=== PATIENT | female | born 1995 | race Caucasian/White ===

== ENCOUNTER → 2016-09-30 | Outpatient (REF) | payer OTHER | LOC: M SFHCWAGY 15:58 | PROVIDERS: ATTEND Nurse Practitioner Family | DX: Z12.4 Encounter for screening for malignant neoplasm of cervix (principal); R87.612 Low grade squamous intraepithelial lesion on cytologic smear of cervix (LGSIL); Z11.3 Encounter for screening for infections with a predominantly sexual mode of transmission | CPT/HCPCS: 87491; 87591; G0123 ==

== ENCOUNTER → 2016-12-22 | Outpatient (REF) | payer OTHER ==
[2016-12-22 18:05] LABS: MEAN CORPUSCULAR HEMOGLOBIN 31.7 pg (27.0-33.0); MEAN CORPUSCULAR HGB CONC 35.9 g/dl (32.0-36.5); MEAN CORPUSCULAR VOLUME 88.3 fl (80.0-96.0); RED CELL DISTRIBUTION WIDTH 12.8 % (11.5-14.5); WHITE BLOOD COUNT 9.2 K/mm3 (4.0-10.0)
[2016-12-22 19:55] LABS: ALBUMIN 3.9 GM/DL (3.2-5.2); ALBUMIN/GLOBULIN RATIO 1.05 (1.00-1.93); ALKALINE PHOSPHATASE 69 U/L (45-117); ALT/SGPT 18 U/L (12-78); ANION GAP 10 MEQ/L (8-16); AST/SGOT 11 U/L (15-37); BILIRUBIN,TOTAL 0.4 MG/DL (0.2-1.0); BLOOD UREA NITROGEN 15 MG/DL (7-18); CALCIUM LEVEL 8.7 MG/DL (8.5-10.1); CARBON DIOXIDE LEVEL 25 MEQ/L (21-32); CHLORIDE LEVEL 106 MEQ/L (98-107); CHOLESTEROL LEVEL 180 MG/DL (<200); CREATININE FOR GFR 0.68 MG/DL (0.55-1.02); FREE T4 0.94 NG/DL (0.76-1.46); GLOMERULAR FILTRATION RATE > 60.0 (>60); GLUCOSE, FASTING 73 MG/DL (70-105); POTASSIUM SERUM 4.1 MEQ/L (3.5-5.1); SODIUM LEVEL 141 MEQ/L (136-145); TOTAL PROTEIN 7.6 GM/DL (6.4-8.2); TRIGLYCERIDES LEVEL 102 MG/DL (<150)
== END ==
LOC: M SFHCLERA 14:38
PROVIDERS: ATTEND Family Medicine
DX: R19.7 Diarrhea, unspecified (principal); R94.6 Abnormal results of thyroid function studies

== ENCOUNTER → 2016-12-31 | Outpatient (CLI) | payer OTHER ==
--- NOTE | 2017-01-01 03:34 | REP ---
Clinical: Abnormal thyroid on physical examination. Technique: Real time nguyen scale and color evaluation using linear high frequency transducer. Findings: The thyroid gland is diffusely heterogeneous and moderately enlarged without discrete focal nodule identified. Right lobe measures 5.4 x 2.2 x 2.2 cm. Left lobe measures 5.1 x 2.2 x 2.5 cm. Isthmus measures 8 mm in width. Impression: Heterogeneous enlarged thyroid gland. Signed by Abilio Jennings MD 01/01/2017 03:26 A
== END ==
LOC: M RAD 14:01
PROVIDERS: ATTEND Family Medicine
DX: R94.6 Abnormal results of thyroid function studies (principal)

== ENCOUNTER → 2017-01-14 | Outpatient (REF) | payer OTHER | LOC: M SFHCLERA 13:33 | PROVIDERS: ATTEND Family Medicine | DX: Z20.2 Contact with and (suspected) exposure to infections with a predominantly sexual mode of transmission (principal) ==

== ENCOUNTER → 2017-02-25 | Outpatient (REF) | payer OTHER ==
[2017-02-25 18:47] LABS: FREE T4 1.05 NG/DL (0.76-1.46)
== END ==
LOC: M SFHCLERA 14:15
PROVIDERS: ATTEND Family Medicine
DX: E03.9 Hypothyroidism, unspecified (principal)

== ENCOUNTER → 2017-02-25 | Outpatient (CLI) | payer OTHER ==
--- NOTE | 2017-02-25 15:35 | REP ---
LUMBAR SPINE, FIVE VIEWS: HISTORY: Back pain. There is no acute fracture or subluxation. The L4-5 intervertebral disc is decreased in height consistent with disc degeneration. Osteophytes are present on L5. The facet joints are normal in appearance. There is loss of the normal lordotic curve. IMPRESSION: Degenerative change as described above. Signed by Shoaib Santizo MD 02/25/2017 03:40 P
== END ==
LOC: M LRY 14:33
PROVIDERS: ATTEND Family Medicine
DX: M54.5 Low back pain (principal)

== ENCOUNTER → 2017-04-20 | Outpatient (REF) | payer OTHER ==
[2017-04-20 19:26] LABS: FREE T4 1.19 NG/DL (0.76-1.46)
== END ==
LOC: M SFHCLERA 14:07
PROVIDERS: ATTEND Family Medicine
DX: R94.6 Abnormal results of thyroid function studies (principal)

== ENCOUNTER → 2017-04-20 | Outpatient (CLI) | payer OTHER ==
--- NOTE | 2017-04-20 14:59 | REP ---
LEFT ANKLE, FOUR VIEWS: HISTORY: Pain. There is no acute fracture or dislocation. The joint space is normal in appearance. A calcified density is present posterior to the talus. This represents ligamentous or tendon calcification. IMPRESSION: There is no acute fracture or dislocation. Signed by Shoaib Santizo MD 04/20/2017 03:05 P
== END ==
LOC: M LRY 14:18
PROVIDERS: ATTEND Family Medicine
DX: G89.29 Other chronic pain (principal); M25.572 Pain in left ankle and joints of left foot

== ENCOUNTER → 2017-09-18 | Outpatient (REF) | payer OTHER | LOC: M SFHCLERA 12:39 | DX: N30.01 Acute cystitis with hematuria (principal) ==

== ENCOUNTER → 2017-10-01 | Outpatient (REF) | payer OTHER ==
[2017-10-01 17:37] LABS: CHLAMYDIA DNA AMPLIFICATION NEGATIVE (NEGATIVE); GC DNA AMPLIFICATION NEGATIVE (NEGATIVE)
== END ==
LOC: M SFHCWAGY 13:22
DX: Z12.4 Encounter for screening for malignant neoplasm of cervix (principal)
CPT/HCPCS: 87591

== ENCOUNTER → 2017-11-30 | Outpatient (REF) | payer OTHER | LOC: M SFHCLERA 09:50 | DX: R23.8 Other skin changes (principal) | CPT/HCPCS: 88305 ==

== ENCOUNTER → 2018-01-12 | Outpatient (REF) | payer OTHER | LOC: M SFHCLERA 16:27 | DX: E03.9 Hypothyroidism, unspecified (principal) ==

== ENCOUNTER → 2018-02-16 | Outpatient (REF) | payer OTHER | LOC: M SFHCLERA 14:25 | DX: E03.9 Hypothyroidism, unspecified (principal) ==

== ENCOUNTER → 2018-02-19 | Outpatient (REF) | payer OTHER | LOC: M SFHCLERA 14:40 | DX: E03.9 Hypothyroidism, unspecified (principal) ==

== ENCOUNTER → 2018-04-09 | Outpatient (CLI) | payer OTHER | LOC: M PLARAD 15:12 | DX: M76.822 Posterior tibial tendinitis, left leg (principal) | CPT/HCPCS: 73721 ==

== ENCOUNTER → 2018-10-14 | Outpatient (CLI) | payer OTHER ==
--- NOTE | 2018-10-14 16:30 | REP ---
Bilateral hands for arthropathy: Right hand: Mineralization and joint spaces are normal. There is no fracture or dislocation. There are no calcifications or foreign bodies. Impression: Negative right hand. No evidence of arthropathy. Left hand: Mineralization and joint spaces are normal. There is no fracture or dislocation. There are no calcifications or foreign bodies. Impression: Negative left hand. There is no evidence of arthropathy. Electronically Signed by Raheem Salazar MD 10/14/2018 04:21 P
== END ==
LOC: M LRY 15:16
PROVIDERS: ATTEND Family Medicine
DX: M25.50 Pain in unspecified joint (principal)

== ENCOUNTER → 2018-10-14 | Outpatient (REF) | payer OTHER ==
[2018-10-15 12:29] LABS: RHEUMATOID FACTOR QUANT < 10.0 IU/ML (<15.0)
[2018-10-19 00:06] LABS: ANA (HEP2) Positive (.); CYCLIC CITRULLINATED PEPTIDE 6 units (0-19)
== END ==
LOC: M SFHCLERA 14:47
PROVIDERS: ATTEND Family Medicine
DX: M25.50 Pain in unspecified joint (principal)

== ENCOUNTER → 2018-10-14 | Outpatient (CLI) | payer OTHER | LOC: M LRY 15:05 | PROVIDERS: ATTEND Family Medicine | DX: M25.50 Pain in unspecified joint (principal) ==

== ENCOUNTER → 2018-10-20 | Outpatient (REF) | payer OTHER | LOC: M SFHCWAGY 10:37 | PROVIDERS: ATTEND Nurse Practitioner Family | DX: Z12.4 Encounter for screening for malignant neoplasm of cervix (principal); Z01.419 Encounter for gynecological examination (general) (routine) without abnormal findings ==

== ENCOUNTER → 2018-12-14 | Outpatient (CLI) | payer OTHER ==
--- NOTE | 2018-12-20 17:30 | SLEEPHOME ---
DATE OF PROCEDURE: 12/14/2018 ORDERED BY: Arie Shaw PA-C Diagnostic home sleep testing was performed due to concern for the obstructive sleep apnea syndrome. For testing, a nocturnal T3 respiratory monitoring device was used. Continuous record was made of pulse, oxygen saturation, airflow, chest, abdominal strain and body position. 10 hours and 59 minutes of data were reviewed. There were 9 hours and 25 minutes marked as time in bed. During the interval marked time in bed, there were 78 respiratory events identified of 10 seconds in duration or greater for a respiratory event index of 8.3. The events were obstructive. Pulse rate and saturations were unable to be reported as the probe became dislodged early in the study. Testing was performed in both the supine and nonsupine positions. IMPRESSION: Abnormal home sleep testing with repetitive respiratory events and a respiratory event index of 8.3 is consistent with the obstructive sleep apnea syndrome. RECOMMENDATIONS: The patient should be encouraged to undergo a formal sleep evaluation and in laboratory pressure titration.
== END ==
LOC: M SLEEP HO 12:24
PROVIDERS: ATTEND Physician Assistant
DX: R40.0 Somnolence (principal)

== ENCOUNTER → 2019-02-14 | Outpatient (REF) | payer OTHER ==
[2019-02-14 20:44] LABS: BASO # 0.1 10^3/uL (0.0-0.2); BASO % 0.7 % (0.0-1.0); EOS # 0.1 10^3/uL (0.0-0.50); EOS % 1.9 % (0.0-3.0); HEMATOCRIT 41.3 % (36.0-47.0); HEMOGLOBIN 13.7 g/dl (12.0-15.5); LYMPH # 2.4 10^3/uL (1.5-6.5); LYMPH % 33.9 % (24.0-44.0); MEAN CORPUSCULAR HEMOGLOBIN 30.1 pg (27.0-33.0); MEAN CORPUSCULAR HGB CONC 33.2 g/dl (32.0-36.5); MEAN CORPUSCULAR VOLUME 90.8 fl (80.0-96.0); MONO # 0.6 10^3/uL (0.0-0.8); MONO % 7.8 % (0.0-5.0); NEUTROPHILS % 55.6 % (36.0-66.0); PLATELET COUNT, AUTOMATED 330 10^3/uL (150-450); RED BLOOD COUNT 4.55 10^6/uL (4.00-5.40); WHITE BLOOD COUNT 7.2 10^3/uL (4.0-10.0)
[2019-02-14 20:47] LABS: ALBUMIN 3.9 GM/DL (3.2-5.2); ALT/SGPT 20 U/L (12-78); BILIRUBIN,TOTAL 0.4 MG/DL (0.2-1.0); BLOOD UREA NITROGEN 10 MG/DL (7-18); CALCIUM LEVEL 8.8 MG/DL (8.5-10.1); CARBON DIOXIDE LEVEL 27 MEQ/L (21-32); CHLORIDE LEVEL 108 MEQ/L (98-107); CREATININE FOR GFR 0.76 MG/DL (0.55-1.30); GLOMERULAR FILTRATION RATE > 60.0 (>60); GLUCOSE, FASTING 77 MG/DL (70-100); POTASSIUM SERUM 4.1 MEQ/L (3.5-5.1); SODIUM LEVEL 143 MEQ/L (136-145); TOTAL PROTEIN 7.3 GM/DL (6.4-8.2)
[2019-02-14 21:42] LABS: FOLATE 9.4 NG/ML; VITAMIN B12 LEVEL 693 PG/ML
[2019-02-17 00:09] LABS: ANA (HEP2) Positive (.); Lyme Disease IgG/IgM Antibodie <0.91 ISR (0.00-0.90); Lyme Disease IgM Ab Quantitati <0.80 index (0.00-0.79)
== END ==
LOC: M SFHCLERA 14:49
PROVIDERS: ATTEND Family Medicine
DX: E03.9 Hypothyroidism, unspecified (principal); G89.29 Other chronic pain; E20.0 Idiopathic hypoparathyroidism

== ENCOUNTER → 2019-08-30 | Outpatient (REF) | payer OTHER | LOC: M SFHCLERA 16:32 | PROVIDERS: ATTEND Physician Assistant | DX: R50.9 Fever, unspecified (principal) ==

== ENCOUNTER → 2019-10-17 | Outpatient (CLI) | payer OTHER, MEDICAID ==
--- NOTE | 2019-10-18 02:18 | REP ---
Clinical: Right wrist pain Technique: AP, lateral, bilateral oblique views. Findings: The carpal bones, surrounding osseous structures, soft tissues, and joint spaces are normal. There is no evidence for acute fracture or dislocation. No subcutaneous emphysema or radiodense foreign body. Impression: Normal wrist series. No acute fracture or dislocation Electronically Signed by Abilio Jennings MD 10/18/2019 02:09 A
== END ==
LOC: M LRY 15:01
PROVIDERS: ATTEND Family Medicine
DX: M25.531 Pain in right wrist (principal)

== ENCOUNTER → 2020-01-11 | Outpatient (CLI) | payer OTHER ==
--- NOTE | 2020-01-17 12:29 | SLEEPCENT ---
DATE OF PROCEDURE: 01/11/2020 INTERPRETATION: Nocturnal polysomnography was performed for the titration of pressure therapy in this patient with a clinical diagnosis of obstructive sleep apnea syndrome supported by home testing revealing a respiratory event index of 8.3. For testing a [employer] full face mask of small size was used, 4 cm of water pressure were applied to the circuit and the lights were extinguished. 6 hours and 52 minutes of data were reviewed. There were only 137.5 minutes of sleep identified. Sleep latency was prolonged at 90 minutes. REM sleep was not achieved. Sleep architecture showed poor progression. Overall sleep efficiency was only 33.8%. The patient's electrocardiogram showed a sinus rhythm with an average heart rate of 50 beats per minute. EEG showed fairly normal waveforms for awake and sleep. There were no respiratory events identified after 5 cm of water pressure. Some limb activity was noted. Limb movement arousal index was 11.8. IMPRESSION: Obstructive sleep apnea syndrome (G47.33) RECOMMENDATIONS: Nightly use of pressure therapy 5 cm of water was sufficient to address any obstructive respiratory events. The patient did display significant limb activity and it may be necessary to address this further to further improve sleep architecture.
== END ==
LOC: M SLEEP 20:00
PROVIDERS: ATTEND Physician Assistant
DX: G47.33 Obstructive sleep apnea (adult) (pediatric) (principal)

== ENCOUNTER → 2020-05-17 | Outpatient (REF) | payer OTHER, MEDICAID ==
[2020-05-18 12:21] LABS: FREE T4 0.92 NG/DL (0.76-1.46); THYROID STIMULATING HORMONE 3.89 uIU/ML (0.358-3.740)
== END ==
LOC: M SFHCLUC 11:28
PROVIDERS: ATTEND Nurse Practitioner Family
DX: E03.9 Hypothyroidism, unspecified (principal)

== ENCOUNTER → 2020-12-20 | Outpatient (CLI) | payer OTHER, MEDICAID ==
[2020-12-20 17:45] LABS: FREE T4 1.05 NG/DL (0.76-1.46); THYROID STIMULATING HORMONE 5.11 uIU/ML (0.358-3.740)
== END ==
LOC: M WUC 11:15
PROVIDERS: ATTEND Nurse Practitioner Family
DX: E03.9 Hypothyroidism, unspecified (principal)

== ENCOUNTER → 2020-12-27 | Outpatient (REF) | payer OTHER, MEDICAID ==
[2020-12-27 17:34] LABS: CHLAMYDIA DNA AMPLIFICATION NEGATIVE (NEGATIVE); GC DNA AMPLIFICATION NEGATIVE (NEGATIVE)
== END ==
LOC: M SFHCWAGY 14:51
PROVIDERS: ATTEND Nurse Practitioner Women's Health
DX: Z12.4 Encounter for screening for malignant neoplasm of cervix (principal); R87.610 Atypical squamous cells of undetermined significance on cytologic smear of cervix (ASC-US)

== ENCOUNTER → 2021-02-05 | Outpatient (CLI) | payer OTHER, MEDICAID ==
[2021-02-05 12:27] LABS: FOLATE 6.7 NG/ML; RHEUMATOID FACTOR QUANT < 10.0 IU/ML (<15.0); TOTAL 25(OH) VITAMIN D 16.2 NG/ML (30.0-100.0); VITAMIN B12 LEVEL 454 PG/ML
== END ==
LOC: M WUC 09:01
PROVIDERS: ATTEND Psychiatry & Neurology Neurology
DX: R51.9 Headache, unspecified (principal)

== ENCOUNTER → 2021-03-25 | Outpatient (CLI) | payer OTHER | LOC: M RAD 13:42 | PROVIDERS: ATTEND Physician Assistant | DX: M51.26 Other intervertebral disc displacement, lumbar region (principal) ==

== ENCOUNTER → 2021-05-24 | Outpatient (CLI) | payer OTHER, MEDICAID ==
[2021-05-24 13:00] LABS: BASO # 0.1 10^3/uL (0.0-0.2); BASO % 0.8 % (0.0-1.0); EOS # 0.2 10^3/uL (0.0-0.5); EOS % 2.4 % (0.0-3.0); HEMATOCRIT 42.4 % (36.0-47.0); HEMOGLOBIN 13.9 g/dl (12.0-15.5); LYMPH # 2.2 10^3/uL (1.5-5.0); LYMPH % 29.2 % (24.0-44.0); MEAN CORPUSCULAR HEMOGLOBIN 30.8 pg (27.0-33.0); MEAN CORPUSCULAR HGB CONC 32.8 g/dl (32.0-36.5); MONO # 0.5 10^3/uL (0.0-0.8); MONO % 6.6 % (2.0-8.0); NEUTROPHILS # 4.5 10^3/uL (1.5-8.5); NEUTROPHILS % 60.9 % (36.0-66.0); PLATELET COUNT, AUTOMATED 324 10^3/uL (150-450); RED BLOOD COUNT 4.51 10^6/uL (4.00-5.40); WHITE BLOOD COUNT 7.4 10^3/uL (4.0-10.0)
[2021-05-24 13:27] LABS: C REACTIVE PROTEIN QUANTITATIV < 0.30 MG/DL (0.00-0.30); RHEUMATOID FACTOR QUANT < 10.0 IU/ML (<15.0)
[2021-05-24 14:07] LABS: ERYTHROCYTE SEDIMENTATION RATE 2 mm/hr (0-20)
== END ==
LOC: M WUC 10:11
PROVIDERS: ATTEND Physician Assistant
DX: M51.37 Other intervertebral disc degeneration, lumbosacral region (principal)

== ENCOUNTER → 2021-11-29 | Outpatient (CLI) | payer OTHER ==
[2021-11-29 14:42] LABS: BASO # 0.1 10^3/uL (0.0-0.2); BASO % 0.6 % (0.0-1.0); EOS # 0.2 10^3/uL (0.0-0.5); EOS % 2.2 % (0.0-3.0); HEMATOCRIT 38.2 % (36.0-47.0); HEMOGLOBIN 12.8 g/dl (12.0-15.5); LYMPH # 2.8 10^3/uL (1.5-5.0); LYMPH % 26.2 % (24.0-44.0); MEAN CORPUSCULAR HEMOGLOBIN 30.4 pg (27.0-33.0); MEAN CORPUSCULAR HGB CONC 33.5 g/dl (32.0-36.5); MEAN CORPUSCULAR VOLUME 90.7 fl (80.0-96.0); MONO # 0.7 10^3/uL (0.0-0.8); MONO % 6.7 % (2.0-8.0); NEUTROPHILS # 6.7 10^3/uL (1.5-8.5); PLATELET COUNT, AUTOMATED 343 10^3/uL (150-450); RED BLOOD COUNT 4.21 10^6/uL (4.00-5.40); WHITE BLOOD COUNT 10.5 10^3/uL (4.0-10.0)
[2021-11-29 15:09] LABS: ALBUMIN 3.8 GM/DL (3.2-5.2); ALT/SGPT 23 U/L (12-78); BILIRUBIN,TOTAL 0.3 MG/DL (0.2-1.0); BLOOD UREA NITROGEN 16 MG/DL (7-18); CALCIUM LEVEL 8.6 MG/DL (8.5-10.1); CARBON DIOXIDE LEVEL 25 MEQ/L (21-32); CHLORIDE LEVEL 112 MEQ/L (98-107); CREATININE FOR GFR 0.62 MG/DL (0.55-1.30); GLOMERULAR FILTRATION RATE > 60.0 (>60); GLUCOSE, FASTING 93 MG/DL (70-100); SODIUM LEVEL 141 MEQ/L (136-145)
[2021-12-02 21:11] LABS: H PYLORI STOOL ANTIGEN Negative (Negative); TISSUE TRANSGLUTAMINASE IgA <2 U/mL (0-3)
== END ==
LOC: M LAB 13:54
PROVIDERS: ATTEND Student in an Organized Health Care Education/Training Program
DX: R14.0 Abdominal distension (gaseous) (principal)

== ENCOUNTER → 2021-12-31 | Outpatient (REF) | payer OTHER | LOC: M SFHCWAGY 10:19 | PROVIDERS: ATTEND Obstetrics & Gynecology | DX: Z12.4 Encounter for screening for malignant neoplasm of cervix (principal) ==

== ENCOUNTER → 2021-12-31 | Outpatient (REF) | payer OTHER ==
[2021-12-31 12:21] LABS: BASO # 0.1 10^3/uL (0.0-0.2); BASO % 0.7 % (0.0-1.0); EOS # 0.2 10^3/uL (0.0-0.5); EOS % 1.7 % (0.0-3.0); HEMATOCRIT 43.2 % (36.0-47.0); HEMOGLOBIN 14.4 g/dl (12.0-15.5); LYMPH # 2.3 10^3/uL (1.5-5.0); LYMPH % 25.6 % (24.0-44.0); MEAN CORPUSCULAR HEMOGLOBIN 31.2 pg (27.0-33.0); MEAN CORPUSCULAR HGB CONC 33.3 g/dl (32.0-36.5); MEAN CORPUSCULAR VOLUME 93.7 fl (80.0-96.0); MONO # 0.7 10^3/uL (0.0-0.8); MONO % 7.4 % (2.0-8.0); NEUTROPHILS # 5.9 10^3/uL (1.5-8.5); NEUTROPHILS % 64.3 % (36.0-66.0); PLATELET COUNT, AUTOMATED 338 10^3/uL (150-450); RED BLOOD COUNT 4.61 10^6/uL (4.00-5.40); WHITE BLOOD COUNT 9.2 10^3/uL (4.0-10.0)
[2021-12-31 12:31] LABS: ALBUMIN 4.3 GM/DL (3.2-5.2); ALT/SGPT 26 U/L (12-78); APPEARANCE, URINE CLEAR (CLEAR); BACTERIA, URINE AUTO NEGATIVE (NEGATIVE); BILIRUBIN, URINE AUTO NEGATIVE (NEGATIVE); BILIRUBIN,TOTAL 0.4 MG/DL (0.2-1.0); BLOOD UREA NITROGEN 15 MG/DL (7-18); BLOOD, URINE BLOOD NEGATIVE (NEGATIVE); CARBON DIOXIDE LEVEL 23 MEQ/L (21-32); CHLORIDE LEVEL 111 MEQ/L (98-107); COLOR, URINE YELLOW (YELLOW); COMPLEMENT C3 107 MG/DL (90-180); COMPLEMENT C4 22 MG/DL (10-40); CREATININE FOR GFR 0.66 MG/DL (0.55-1.30); GLOMERULAR FILTRATION RATE > 60.0 (>60); GLUCOSE, FASTING 84 MG/DL (70-100); GLUCOSE, URINE (UA) AUTO NEGATIVE (NEGATIVE); KETONE, URINE AUTO NEGATIVE (NEGATIVE); LEUKOCYTE ESTERASE, URINE AUTO NEGATIVE (NEGATIVE); NITRITE, URINE AUTO NEGATIVE (NEGATIVE); PROTEIN, URINE AUTO NEGATIVE (NEGATIVE); RBC, URINE AUTO 0 /HPF (0-3); SODIUM LEVEL 139 MEQ/L (136-145); SPECIFIC GRAVITY URINE AUTO 1.013 (1.002-1.035); SQUAMOUS EPITHELIAL CELL UR AU 1 /HPF (0-6); TOTAL PROTEIN 7.8 GM/DL (6.4-8.2); UROBILINOGEN, URINE AUTO 0.2 mg/dL (0.0-2.0); WBC, URINE AUTO 0 /HPF (0-3)
[2021-12-31 12:43] LABS: ERYTHROCYTE SEDIMENTATION RATE 2 mm/hr (0-20)
[2021-12-31 12:48] LABS: CREATININE,RANDOM URINE 77.2 MG/DL; TOTAL PROTEIN,RANDOM URINE 6.2 MG/DL (0.0-12.0)
== END ==
LOC: M SFHCRHEU 08:52
PROVIDERS: ATTEND Internal Medicine Rheumatology
DX: R76.8 Other specified abnormal immunological findings in serum (principal); M35.3 Polymyalgia rheumatica

== ENCOUNTER → 2022-04-11 | Outpatient (REF) | payer OTHER, MEDICAID ==
[2022-04-11 17:11] LABS: FREE T4 0.96 NG/DL (0.76-1.46); THYROID STIMULATING HORMONE 2.81 uIU/ML (0.358-3.740)
== END ==
LOC: M SFHCLERA 15:51
PROVIDERS: ATTEND Student in an Organized Health Care Education/Training Program
DX: E03.9 Hypothyroidism, unspecified (principal)

== ENCOUNTER → 2022-11-04 | Outpatient (REF) | payer OTHER, MEDICAID | LOC: M LAB REF 09:13 | PROVIDERS: ATTEND Physician Assistant | DX: N30.01 Acute cystitis with hematuria (principal) ==

== ENCOUNTER → 2022-12-10 | Outpatient (CLI) | payer OTHER, MEDICAID ==
[2022-12-10 13:02] LABS: APPEARANCE, URINE HAZY (CLEAR); BACTERIA, URINE AUTO NEGATIVE (NEGATIVE); BILIRUBIN, URINE AUTO NEGATIVE (NEGATIVE); BLOOD, URINE BLOOD NEGATIVE (NEGATIVE); COLOR, URINE YELLOW (YELLOW); GLUCOSE, URINE (UA) AUTO NEGATIVE (NEGATIVE); KETONE, URINE AUTO NEGATIVE (NEGATIVE); LEUKOCYTE ESTERASE, URINE AUTO 1+ (NEGATIVE); MUCUS, URINE SMALL (NEGATIVE); NITRITE, URINE AUTO NEGATIVE (NEGATIVE); PROTEIN, URINE AUTO NEGATIVE (NEGATIVE); RBC, URINE AUTO 1 /HPF (0-3); SPECIFIC GRAVITY URINE AUTO 1.019 (1.002-1.035); SQUAMOUS EPITHELIAL CELL UR AU 11 /HPF (0-6); UROBILINOGEN, URINE AUTO 0.2 mg/dL (0.0-2.0); WBC, URINE AUTO 1 /HPF (0-3)
[2022-12-10 13:04] LABS: BASO % 0.5 % (0.0-1.0); EOS # 0.1 10^3/uL (0.0-0.5); EOS % 1.6 % (0.0-3.0); HEMATOCRIT 40.6 % (36.0-47.0); HEMOGLOBIN 13.5 g/dl (12.0-15.5); LYMPH # 2.3 10^3/uL (1.5-5.0); LYMPH % 25.5 % (24.0-44.0); MEAN CORPUSCULAR HEMOGLOBIN 30.3 pg (27.0-33.0); MEAN CORPUSCULAR HGB CONC 33.3 g/dl (32.0-36.5); MEAN CORPUSCULAR VOLUME 91.2 fl (80.0-96.0); MONO # 0.6 10^3/uL (0.0-0.8); MONO % 6.8 % (2.0-8.0); NEUTROPHILS # 5.8 10^3/uL (1.5-8.5); NEUTROPHILS % 65.4 % (36.0-66.0); PLATELET COUNT, AUTOMATED 331 10^3/uL (150-450); RED BLOOD COUNT 4.45 10^6/uL (4.00-5.40); WHITE BLOOD COUNT 8.9 10^3/uL (4.0-10.0)
[2022-12-10 13:25] LABS: TOTAL PROTEIN,RANDOM URINE 15.5 MG/DL (0.0-14.0)
[2022-12-10 13:27] LABS: CREATININE,RANDOM URINE 100.1 MG/DL
[2022-12-10 13:28] LABS: ALBUMIN 4.1 G/DL (3.2-5.2); ALKALINE PHOSPHATASE 71 U/L (46-116); ALT/SGPT 18 U/L (7.0-40); AST/SGOT 12 U/L (<34); BILIRUBIN,TOTAL 0.4 MG/DL (0.3-1.2); BLOOD UREA NITROGEN 14 MG/DL (9-23); CALCIUM LEVEL 8.5 MG/DL (8.5-10.1); CARBON DIOXIDE LEVEL 24 MMOL/L (20-31); CHLORIDE LEVEL 109 MMOL/L (98-107); CREATININE FOR GFR 0.69 MG/DL (0.55-1.30); GLOMERULAR FILTRATION RATE > 60.0 (>60); GLUCOSE, FASTING 75 MG/DL (60-100); SODIUM LEVEL 138 MMOL/L (136-145); TOTAL PROTEIN 7.3 G/DL (5.7-8.2)
[2022-12-10 13:31] LABS: C REACTIVE PROTEIN QUANTITATIV < 0.40 MG/DL (<1.0)
[2022-12-10 13:32] LABS: COMPLEMENT C3 131.5 MG/DL (82.0-160.0); COMPLEMENT C4 29.3 MG/DL (12-36)
[2022-12-10 13:39] LABS: ERYTHROCYTE SEDIMENTATION RATE 6 mm/hr (0-20)
[2022-12-12 16:09] LABS: ANTI DS-DNA AB Positive (Negative)
== END ==
LOC: M WUC 10:26
PROVIDERS: ATTEND Internal Medicine Rheumatology
DX: R76.8 Other specified abnormal immunological findings in serum (principal); M35.3 Polymyalgia rheumatica; R21 Rash and other nonspecific skin eruption

== ENCOUNTER → 2023-01-13 | Outpatient (REF) | payer OTHER, MEDICAID | LOC: M SFHCWAGY 10:25 | PROVIDERS: ATTEND Obstetrics & Gynecology | DX: Z12.4 Encounter for screening for malignant neoplasm of cervix (principal); Z77.9 Other contact with and (suspected) exposures hazardous to health ==

== ENCOUNTER → 2023-01-17 | Outpatient (CLI) | payer OTHER, MEDICAID ==
[2023-01-17 13:45] LABS: LUTEINIZING HORMONE 3.9 mIU/ML
[2023-01-17 13:46] LABS: FOLLICLE STIMULATING HORMONE 6.6 mIU/ML; PROGESTERONE 0.32 NG/ML
== END ==
LOC: M LAB 12:40
PROVIDERS: ATTEND Obstetrics & Gynecology
DX: Z31.9 Encounter for procreative management, unspecified (principal)

== ENCOUNTER → 2023-02-04 | Outpatient (CLI) | payer OTHER | LOC: M LAB 14:35 | PROVIDERS: ATTEND Obstetrics & Gynecology | DX: Z31.9 Encounter for procreative management, unspecified (principal) ==

== ENCOUNTER → 2023-02-06 | Outpatient (CLI) | payer OTHER | LOC: M PLARAD 13:46 | PROVIDERS: ATTEND Nurse Practitioner Family | DX: M54.16 Radiculopathy, lumbar region (principal) ==

== ENCOUNTER → 2023-04-14 | Outpatient (CLI) | payer OTHER ==
[~2023-04-14] MED LIST: ISOVUE-370 76% 100ML VIAL As Ordered ONE
== END ==
LOC: M RADPRO 11:57
PROVIDERS: ATTEND Obstetrics & Gynecology
DX: N97.9 Female infertility, unspecified (principal)
CPT/HCPCS: 58340; 74740; Q9967

== ENCOUNTER → 2023-05-14 | Outpatient (REF) | payer OTHER ==
[2023-05-14 21:08] LABS: BASO # 0.1 10^3/uL (0.0-0.2); BASO % 0.7 % (0.0-1.0); EOS # 0.2 10^3/uL (0.0-0.5); EOS % 1.6 % (0.0-3.0); HEMATOCRIT 42.7 % (36.0-47.0); HEMOGLOBIN 13.7 g/dl (12.0-15.5); LYMPH % 24.5 % (24.0-44.0); MEAN CORPUSCULAR HEMOGLOBIN 29.7 pg (27.0-33.0); MEAN CORPUSCULAR HGB CONC 32.1 g/dl (32.0-36.5); MEAN CORPUSCULAR VOLUME 92.4 fl (80.0-96.0); MONO # 0.8 10^3/uL (0.0-0.8); MONO % 6.6 % (2.0-8.0); NEUTROPHILS # 8.1 10^3/uL (1.5-8.5); NEUTROPHILS % 66.3 % (36.0-66.0); PLATELET COUNT, AUTOMATED 380 10^3/uL (150-450); RED BLOOD COUNT 4.62 10^6/uL (4.00-5.40); WHITE BLOOD COUNT 12.2 10^3/uL (4.0-10.0)
[2023-05-14 21:29] LABS: ALBUMIN 4.2 G/DL (3.2-5.2); ALKALINE PHOSPHATASE 78 U/L (46-116); ALT/SGPT 20 U/L (7.0-40); AST/SGOT < 8 U/L (<34); BILIRUBIN,TOTAL 0.4 MG/DL (0.3-1.2); BLOOD UREA NITROGEN 20 MG/DL (9-23); CALCIUM LEVEL 8.8 MG/DL (8.5-10.1); CARBON DIOXIDE LEVEL 24 MMOL/L (20-31); CHLORIDE LEVEL 106 MMOL/L (98-107); CREATININE FOR GFR 0.63 MG/DL (0.55-1.30); GLOMERULAR FILTRATION RATE > 60.0 (>60); GLUCOSE, FASTING 86 MG/DL (60-100); SODIUM LEVEL 139 MMOL/L (136-145); TOTAL PROTEIN 7.5 G/DL (5.7-8.2)
== END ==
LOC: M LAB REF 20:43
PROVIDERS: ATTEND Psychiatry & Neurology Neurology
DX: R51.9 Headache, unspecified (principal)

== ENCOUNTER → 2023-05-19 | Outpatient (CLI) | payer OTHER ==
[2023-05-19 18:20] LABS: FREE T4 0.87 NG/DL (0.89-1.76); THYROID STIMULATING HORMONE 3.16 uIU/ML (0.55-4.78)
== END ==
LOC: M WUC 12:51
PROVIDERS: ATTEND Student in an Organized Health Care Education/Training Program
DX: E03.9 Hypothyroidism, unspecified (principal); R10.13 Epigastric pain

== ENCOUNTER → 2023-07-01 | Outpatient (REF) | payer OTHER ==
[2023-07-01 16:20] LABS: BASO # 0.1 10^3/uL (0.0-0.2); BASO % 0.6 % (0.0-1.0); EOS # 0.1 10^3/uL (0.0-0.5); EOS % 1.3 % (0.0-3.0); HEMATOCRIT 42.8 % (36.0-47.0); HEMOGLOBIN 14.1 g/dl (12.0-15.5); LYMPH # 2.1 10^3/uL (1.5-5.0); LYMPH % 22.3 % (24.0-44.0); MEAN CORPUSCULAR HEMOGLOBIN 30.5 pg (27.0-33.0); MEAN CORPUSCULAR HGB CONC 32.9 g/dl (32.0-36.5); MEAN CORPUSCULAR VOLUME 92.4 fl (80.0-96.0); MONO # 0.6 10^3/uL (0.0-0.8); MONO % 6.1 % (2.0-8.0); NEUTROPHILS # 6.5 10^3/uL (1.5-8.5); NEUTROPHILS % 69.5 % (36.0-66.0); PLATELET COUNT, AUTOMATED 353 10^3/uL (150-450); RED BLOOD COUNT 4.63 10^6/uL (4.00-5.40); WHITE BLOOD COUNT 9.3 10^3/uL (4.0-10.0)
[2023-07-01 16:26] LABS: ERYTHROCYTE SEDIMENTATION RATE 21 mm/hr (0-20)
[2023-07-01 16:33] LABS: COMPLEMENT C3 129.8 MG/DL (84.0-160.0); COMPLEMENT C4 28.2 MG/DL (12-36)
[2023-07-01 16:34] LABS: ALBUMIN 4.3 G/DL (3.2-5.2); ALKALINE PHOSPHATASE 78 U/L (46-116); ALT/SGPT 14 U/L (7.0-40); AST/SGOT 12 U/L (<34); BILIRUBIN,TOTAL 0.4 MG/DL (0.3-1.2); BLOOD UREA NITROGEN 15 MG/DL (9-23); CALCIUM LEVEL 8.9 MG/DL (8.5-10.1); CARBON DIOXIDE LEVEL 25 MMOL/L (20-31); CHLORIDE LEVEL 105 MMOL/L (98-107); GLOMERULAR FILTRATION RATE > 60.0 (>60); GLUCOSE, FASTING 79 MG/DL (60-100); POTASSIUM SERUM 4.1 MMOL/L (3.5-5.1); SODIUM LEVEL 139 MMOL/L (136-145); TOTAL PROTEIN 7.5 G/DL (5.7-8.2)
== END ==
LOC: M SFHCRHEU 11:50
PROVIDERS: ATTEND Internal Medicine Rheumatology
DX: R76.8 Other specified abnormal immunological findings in serum (principal); M35.3 Polymyalgia rheumatica; R21 Rash and other nonspecific skin eruption

== ENCOUNTER → 2023-07-21 | Outpatient (CLI) | payer OTHER ==
[~2023-07-21] MED LIST changes: +E-Z-GAS II EFFERVESCENT PACKET (SODIUM BICARB./CITRIC ACID/SIMETHICONE) As Ordered ONE; +E-Z-HD 98% w/w 340GM SUSP BTL As Ordered ONE; +E-Z-PAQUE 96% w/w SUSP 176GM BTL As Ordered ONE; -ISOVUE-370 76% 100ML VIAL As Ordered ONE
== END ==
LOC: M RAD 08:15
PROVIDERS: ATTEND Student in an Organized Health Care Education/Training Program
DX: R09.89 Other specified symptoms and signs involving the circulatory and respiratory systems (principal)

== ENCOUNTER → 2023-10-14 | Outpatient (REF) | payer OTHER | LOC: M SFHCDERM 17:33 | PROVIDERS: ATTEND Physician Assistant | DX: D23.62 Other benign neoplasm of skin of left upper limb, including shoulder (principal) ==

== ENCOUNTER → 2024-03-01 | Outpatient (REF) | payer OTHER ==
[2024-03-01 17:39] LABS: TOTAL PROTEIN,RANDOM URINE 13.5 MG/DL (0.0-14.0)
[2024-03-01 17:41] LABS: C REACTIVE PROTEIN QUANTITATIV < 0.40 MG/DL (<1.0)
[2024-03-01 17:43] LABS: ALBUMIN 3.9 G/DL (3.2-5.2); ALKALINE PHOSPHATASE 71 U/L (46-116); ALT/SGPT 16 U/L (7.0-40); AST/SGOT < 8 U/L (<34); BILIRUBIN,TOTAL 0.5 MG/DL (0.3-1.2); BLOOD UREA NITROGEN 12 MG/DL (9-23); CALCIUM LEVEL 8.5 MG/DL (8.5-10.1); CARBON DIOXIDE LEVEL 27 MMOL/L (20-31); CHLORIDE LEVEL 107 MMOL/L (98-107); COMPLEMENT C3 121.1 MG/DL (84.0-160.0); COMPLEMENT C4 25.8 MG/DL (12-36); CREATININE FOR GFR 0.54 MG/DL (0.55-1.30); GLOMERULAR FILTRATION RATE > 60.0 (>60); GLUCOSE, FASTING 88 MG/DL (60-100); POTASSIUM SERUM 4.2 MMOL/L (3.5-5.1); SODIUM LEVEL 140 MMOL/L (136-145); TOTAL PROTEIN 7.1 G/DL (5.7-8.2)
[2024-03-01 17:44] LABS: CREATININE,RANDOM URINE 141.4 MG/DL
[2024-03-01 17:47] LABS: BASO # 0.1 10^3/uL (0.0-0.2); BASO % 0.7 % (0.0-1.0); EOS # 0.2 10^3/uL (0.0-0.5); EOS % 2.2 % (0.0-3.0); HEMATOCRIT 41.6 % (36.0-47.0); HEMOGLOBIN 13.7 g/dl (12.0-15.5); LYMPH # 1.9 10^3/uL (1.5-5.0); MEAN CORPUSCULAR HEMOGLOBIN 30.4 pg (27.0-33.0); MEAN CORPUSCULAR HGB CONC 32.9 g/dl (32.0-36.5); MEAN CORPUSCULAR VOLUME 92.4 fl (80.0-96.0); MONO # 0.5 10^3/uL (0.0-0.8); MONO % 6.5 % (2.0-8.0); NEUTROPHILS # 4.8 10^3/uL (1.5-8.5); NEUTROPHILS % 65.3 % (36.0-66.0); PLATELET COUNT, AUTOMATED 360 10^3/uL (150-450); WHITE BLOOD COUNT 7.4 10^3/uL (4.0-10.0)
[2024-03-01 17:54] LABS: ERYTHROCYTE SEDIMENTATION RATE 6 mm/hr (0-20)
[2024-03-01 17:55] LABS: APPEARANCE, URINE CLEAR (CLEAR); BACTERIA, URINE AUTO NEGATIVE (NEGATIVE); BILIRUBIN, URINE AUTO NEGATIVE (NEGATIVE); BLOOD, URINE BLOOD NEGATIVE (NEGATIVE); COLOR, URINE YELLOW (YELLOW); GLUCOSE, URINE (UA) AUTO NEGATIVE (NEGATIVE); KETONE, URINE AUTO NEGATIVE (NEGATIVE); LEUKOCYTE ESTERASE, URINE AUTO NEGATIVE (NEGATIVE); MUCUS, URINE SMALL (NEGATIVE); NITRITE, URINE AUTO NEGATIVE (NEGATIVE); PROTEIN, URINE AUTO NEGATIVE (NEGATIVE); RBC, URINE AUTO 0 /HPF (0-3); SPECIFIC GRAVITY URINE AUTO 1.024 (1.002-1.035); SQUAMOUS EPITHELIAL CELL UR AU 2 /HPF (0-6); UROBILINOGEN, URINE AUTO 0.2 mg/dL (0.0-2.0); WBC, URINE AUTO 0 /HPF (0-3)
== END ==
LOC: M SFHCRHEU 11:49
PROVIDERS: ATTEND Internal Medicine Rheumatology
DX: R76.8 Other specified abnormal immunological findings in serum (principal); M35.3 Polymyalgia rheumatica; R21 Rash and other nonspecific skin eruption; M25.50 Pain in unspecified joint

== ENCOUNTER → 2024-09-20 | Outpatient (CLI) | payer OTHER ==
[~2024-09-20] MED LIST changes: -E-Z-GAS II EFFERVESCENT PACKET (SODIUM BICARB./CITRIC ACID/SIMETHICONE) As Ordered ONE; -E-Z-HD 98% w/w 340GM SUSP BTL As Ordered ONE; -E-Z-PAQUE 96% w/w SUSP 176GM BTL As Ordered ONE; +LEVO88TA3 PO; +METF-838 PO; +PANT20TA6 PO; +TIZA10TA PO; +VENL150C43 PO
[2024-09-20 19:20] LABS: BASO # 0.1 10^3/uL (0.0-0.2); BASO % 0.5 % (0.0-1.0); EOS # 0.2 10^3/uL (0.0-0.5); EOS % 2.2 % (0.0-3.0); HEMATOCRIT 41.9 % (36.0-47.0); HEMOGLOBIN 13.8 g/dl (12.0-15.5); LYMPH # 2.3 10^3/uL (1.5-5.0); LYMPH % 25.7 % (24.0-44.0); MEAN CORPUSCULAR HEMOGLOBIN 30.5 pg (27.0-33.0); MEAN CORPUSCULAR HGB CONC 32.9 g/dl (32.0-36.5); MEAN CORPUSCULAR VOLUME 92.7 fl (80.0-96.0); MONO # 0.7 10^3/uL (0.0-0.8); MONO % 7.9 % (2.0-8.0); NEUTROPHILS # 5.8 10^3/uL (1.5-8.5); NEUTROPHILS % 63.4 % (36.0-66.0); PLATELET COUNT, AUTOMATED 327 10^3/uL (150-450); RED BLOOD COUNT 4.52 10^6/uL (4.00-5.40); WHITE BLOOD COUNT 9.1 10^3/uL (4.0-10.0)
[2024-09-20 19:33] LABS: HEMOGLOBIN A1c 4.8 % (4.0-6.0)
[2024-09-20 19:49] LABS: ALBUMIN 4.1 G/DL (3.2-5.2); ALKALINE PHOSPHATASE 77 U/L (35-104); ALT/SGPT 30 U/L (7.0-40); AST/SGOT 17 U/L (<34); BILIRUBIN,TOTAL 0.4 MG/DL (0.3-1.2); BLOOD UREA NITROGEN 14 MG/DL (9-23); CARBON DIOXIDE LEVEL 27 MMOL/L (20-31); CHLORIDE LEVEL 108 MMOL/L (98-107); CHOLESTEROL LEVEL 195 MG/DL (<200); CHOLESTEROL RISK RATIO 4.08 (<5); GLOMERULAR FILTRATION RATE > 60.0 (>60); GLUCOSE, FASTING 88 MG/DL (60-100); HDL CHOLESTEROL 47.7 MG/DL (>40); LDL CHOLESTEROL 127.5 MG/DL (<100); NON-HDL-C 147.3 MG/DL; POTASSIUM SERUM 4.3 MMOL/L (3.5-5.1); SODIUM LEVEL 141 MMOL/L (136-145); TOTAL PROTEIN 7.4 G/DL (5.7-8.2); TRIGLYCERIDES LEVEL 99 MG/DL (<150)
[2024-09-20 19:52] LABS: THYROID STIMULATING HORMONE 6.225 uIU/ML (0.55-4.78)
== END ==
LOC: M WUC 14:31
PROVIDERS: ATTEND Family Medicine
DX: Z00.00 Encounter for general adult medical examination without abnormal findings (principal); Z01.419 Encounter for gynecological examination (general) (routine) without abnormal findings

== ENCOUNTER → 2024-10-25 | Outpatient (CLI) | payer OTHER | LOC: M SOG 07:55 | PROVIDERS: ATTEND Physician Assistant | DX: M25.531 Pain in right wrist (principal); M25.532 Pain in left wrist ==

== ENCOUNTER → 2024-12-02 | Outpatient (CLI) | payer OTHER | LOC: M RAD 15:59 | PROVIDERS: ATTEND Obstetrics & Gynecology | DX: N88.8 Other specified noninflammatory disorders of cervix uteri (principal); N83.201 Unspecified ovarian cyst, right side; N83.292 Other ovarian cyst, left side ==

== ENCOUNTER → 2024-12-22 | Outpatient (REF) | payer OTHER ==
[2024-12-22 17:45] LABS: C REACTIVE PROTEIN QUANTITATIV 1.19 MG/DL (<1.0)
[2024-12-22 17:46] LABS: ALBUMIN 3.8 G/DL (3.2-5.2); ALKALINE PHOSPHATASE 82 U/L (35-104); ALT/SGPT 22 U/L (7.0-40); AST/SGOT 11 U/L (<34); BILIRUBIN,TOTAL 0.4 MG/DL (0.3-1.2); BLOOD UREA NITROGEN 11 MG/DL (9-23); CALCIUM LEVEL 8.7 MG/DL (8.5-10.1); CARBON DIOXIDE LEVEL 27 MMOL/L (20-31); CHLORIDE LEVEL 106 MMOL/L (98-107); CREATININE FOR GFR 0.55 MG/DL (0.55-1.30); GLOMERULAR FILTRATION RATE > 90.0 (>60); GLUCOSE, FASTING 72 MG/DL (60-100); POTASSIUM SERUM 3.9 MMOL/L (3.5-5.1); SODIUM LEVEL 143 MMOL/L (136-145); TOTAL PROTEIN 7.3 G/DL (5.7-8.2)
[2024-12-22 17:47] LABS: COMPLEMENT C3 173.7 MG/DL (84.0-160.0); COMPLEMENT C4 33.2 MG/DL (12-36)
[2024-12-22 17:48] LABS: APPEARANCE, URINE CLEAR (CLEAR); BACTERIA, URINE AUTO NEGATIVE (NEGATIVE); BILIRUBIN, URINE AUTO NEGATIVE (NEGATIVE); BLOOD, URINE BLOOD 1+ (NEGATIVE); COLOR, URINE YELLOW (YELLOW); GLUCOSE, URINE (UA) AUTO NEGATIVE (NEGATIVE); KETONE, URINE AUTO NEGATIVE (NEGATIVE); LEUKOCYTE ESTERASE, URINE AUTO NEGATIVE (NEGATIVE); MUCUS, URINE SMALL (NEGATIVE); NITRITE, URINE AUTO NEGATIVE (NEGATIVE); PROTEIN, URINE AUTO NEGATIVE (NEGATIVE); RBC, URINE AUTO 1 /HPF (0-3); SQUAMOUS EPITHELIAL CELL UR AU 4 /HPF (0-6); UROBILINOGEN, URINE AUTO 0.2 mg/dL (0.0-2.0); WBC, URINE AUTO 0 /HPF (0-3)
[2024-12-22 18:05] LABS: TOTAL PROTEIN,RANDOM URINE 9.5 MG/DL (0.0-14.0)
[2024-12-22 18:06] LABS: BASO # 0.1 10^3/uL (0.0-0.2); BASO % 0.4 % (0.0-1.0); EOS # 0.1 10^3/uL (0.0-0.5); EOS % 1.1 % (0.0-3.0); HEMATOCRIT 40.4 % (36.0-47.0); HEMOGLOBIN 13.2 g/dl (12.0-15.5); LYMPH # 2.6 10^3/uL (1.5-5.0); LYMPH % 21.9 % (24.0-44.0); MEAN CORPUSCULAR HEMOGLOBIN 29.9 pg (27.0-33.0); MEAN CORPUSCULAR HGB CONC 32.7 g/dl (32.0-36.5); MEAN CORPUSCULAR VOLUME 91.6 fl (80.0-96.0); MONO # 0.8 10^3/uL (0.0-0.8); NEUTROPHILS # 8.1 10^3/uL (1.5-8.5); NEUTROPHILS % 69.3 % (36.0-66.0); PLATELET COUNT, AUTOMATED 369 10^3/uL (150-450); RED BLOOD COUNT 4.41 10^6/uL (4.00-5.40); WHITE BLOOD COUNT 11.8 10^3/uL (4.0-10.0)
[2024-12-22 18:10] LABS: CREATININE,RANDOM URINE 146.1 MG/DL
[2024-12-22 18:13] LABS: ERYTHROCYTE SEDIMENTATION RATE 12 mm/hr (0-20)
== END ==
LOC: M SFHCRHEU 14:29
PROVIDERS: ATTEND Internal Medicine Rheumatology
DX: R76.8 Other specified abnormal immunological findings in serum (principal); M35.3 Polymyalgia rheumatica; R21 Rash and other nonspecific skin eruption

== ENCOUNTER 2025-01-30 06:09 | Day surgery (SDC) | payer OTHER ==
[~2025-01-30] VITALS: Ht 162.6 cm; Wt 135.1 kg
[~2025-01-30 06:09] MED LIST changes: +LEVO100T5 PO
[2025-01-30] MEDS: SODIUM BICARBONATE 8.4% INJ 50MEQ/50ML VIAL XX ONE (07:15)
[2025-01-30] MEDS: LIDOCAINE W/EPINEPHRINE 1% 20ML VIAL XX ONE (07:15)
[2025-01-30] MEDS: POLYSPORIN TOPICAL OINTMENT 15GM As Ordered ONE (07:55)
[2025-01-30 08:01] VITALS: BP 143/83; TEMP 97.3; O2SAT 100
== END 2025-01-30 08:15 | disposition home or self-care (01) ==
LOC: M SDC 06:09
PROVIDERS: ATTEND Orthopaedic Surgery Hand Surgery
DX: M65.4 Radial styloid tenosynovitis [de Quervain] (principal)